=== PATIENT | male | born 1995 | race Two or more races ===

== ENCOUNTER 2019-07-25 11:46 | Emergency (ER) | payer OTHER ==
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
--- NOTE | 2019-07-25 12:29 | CR ---
EXAM DATE: 07/25/19 PATIENT'S AGE: 24 Chest: Supine view of the chest was obtained. Comparison: No prior chest x-ray. Heart size and mediastinum are normal. Lungs are clear. Bony structures are unremarkable. Impression: 1. Nothing acute is seen on supine abdominal x-ray. Diagnostic code #1 This report was dictated in [place] Standard Time Report Signed by Proxy. [facility]ITAL[facility]il[facility]
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
[2019-07-25 13:08] LABS: BLOOD UREA NITROGEN,BUN 13 mg/dL (7.0-18.0); CHLORIDE,CL 103 mmol/L (98-107); GLUCOSE RANDOM 97 mg/dL (74-106); SODIUM,NA 140 mmol/L (136-148)
== END 2019-07-25 14:14 | disposition home or self-care (01) ==
LOC: MW.ED 11:46
DX: S19.9XXA Unspecified injury of neck, initial encounter (principal); S29.9XXA Unspecified injury of thorax, initial encounter; Z79.899 Other long term (current) drug therapy; V89.2XXA Person injured in unspecified motor-vehicle accident, traffic, initial encounter
CPT/HCPCS: 36415; 70450; 70450-26; 71045; 71045-26; 72125; 72125-26; 72128; 72128-26; 80053; 81003; 83690; 85025; 93005; 99284; 99284-25